=== PATIENT | female | born 1990 | race Caucasian/White ===

== ENCOUNTER 2020-09-09 10:07 | Outpatient (REF) | payer MEDICAID, SELFPAY ==
[2020-09-09 10:44] LABS: MANUAL DIFF FLAG NO
[2020-09-09 11:04] LABS: Basophils Absolute Auto 0.1 X10*3/uL (0.0-0.2); Basophils Percent Auto 0.9 % (0-2); Eosinophils Absolute Auto 0.1 X10*3/uL (0.0-0.4); Eosinophils Percent Auto 1.9 % (0-4); Hematocrit 34.6 % (37-47); Hemoglobin 10.7 g/dl (12.0-16.0); Imm Gran Abs Auto 0.01 X10*3/uL (0.00-0.03); Imm Gran Pct Auto 0.2 % (0.0-0.4); Lymphocytes Absolute Auto 1.8 X10*3/uL (1.2-4.9); Mean Corpuscular HGB Conc 30.9 g/dl (31.0-35.0); Mean Corpuscular Hemoglobin 26.5 pg (27.0-33.0); Mean Corpuscular Volume 85.6 fL (80-98); Mean Platelet Volume 10.9 fL (9.4-12.3); Monocytes Absolute Auto 0.4 X10*3/uL (0.1-1.2); Monocytes Percent Auto 6.3 % (2-11); Neutrophils Absolute Auto 3.4 X10*3/uL (2.0-8.3); Neutrophils Percent Auto 59.7 % (45-73); Platelet Count 319 X10*3/uL (160-400); Red Blood Count 4.04 X10*6/uL (4.20-5.50); White Blood Count 5.7 X10*3/uL (4.8-10.8)
[2020-09-09 11:09] LABS: Alanine Aminotransferase 18 U/L (0-31); Albumin Level 3.9 g/dL (3.5-5.0); Alkaline Phosphatase 72 U/L (39-117); Anion Gap 10 (12-20); Aspartate Amino Transferase 23 U/L (5-31); Bilirubin Total 0.3 mg/dL (0.0-1.0); Blood Urea Nitrogen 12 mg/dL (9-16); Calcium 8.7 mg/dL (8.4-10.2); Carbon Dioxide 24 mmol/L (22-29); Chloride 109 mmol/L (96-108); Cholesterol 115 mg/dL; Estimated Glomerular Filt Rate > 60; Glucose Random 86 mg/dL (60-115); HDL Cholesterol 45 mg/dL; LDL Cholesterol Calculated 61 mg/dl; Potassium 4.1 mmol/l (3.3-5.1); Sodium 139 mmol/L (135-145); Total Protein 6.6 g/dL (6.5-8.0); Triglycerides 45 mg/dL
[2020-09-09 11:26] LABS: Ferritin 9 ng/mL (10-122); TSH reflex Free T4 0.46 mIU/mL (0.32-4.0)
== END 2020-09-09 10:08 | disposition home or self-care (01) ==
LOC: HO.LAB 10:07
PROVIDERS: PCP Internal Medicine; Visit Provider Internal Medicine
DX: N92.0 Excessive and frequent menstruation with regular cycle (principal); R11.2 Nausea with vomiting, unspecified; Z68.21 Body mass index [BMI] 21.0-21.9, adult
CPT/HCPCS: 36415; 80053; 80061; 82728; 84443; 85025

== ENCOUNTER 2020-09-13 15:41 | Outpatient (REF) | payer MEDICAID, SELFPAY ==
--- NOTE | 2020-09-13 | US_ITS ---
EXAMINATION: US PELVIS, COMPLETE CLINICAL INFORMATION: Menorrhagia; the last menstrual period was on 09/01/2020. COMPARISON: Pelvic ultrasound dated 04/30/2008. TECHNIQUE: Transabdominal and transvaginal imaging was performed. FINDINGS: The uterus is of normal size and heterogeneous in echotexture, measuring 9.6 x 3.7 x 4.9 cm. The uterus is anteverted. A regular homogeneous endometrium is identified measuring 0.3 cm. Both ovaries are of normal size and echogenicity. The right ovary measures 3.1 x 2.8 x 2.5 cm for a volume of 11.4 mL. There is a 1.2 cm simple right ovarian cyst. The left ovary measures 3.1 x 3.0 x 1.7 cm for a volume of 8.3 mL. There is further small physiologic follicles within the bilateral ovaries. There is no pelvic free fluid. No adnexal mass is seen. US/US pelvic complete IMPRESSION: A 1.2 cm simple right ovarian cyst is incidentally noted. The examination is otherwise unremarkable.
--- NOTE | 2020-09-13 | US_ITS ---
EXAMINATION: US PELVIS, COMPLETE CLINICAL INFORMATION: Menorrhagia; the last menstrual period was on 09/01/2020. COMPARISON: Pelvic ultrasound dated 04/30/2008. TECHNIQUE: Transabdominal and transvaginal imaging was performed. FINDINGS: The uterus is of normal size and heterogeneous in echotexture, measuring 9.6 x 3.7 x 4.9 cm. The uterus is anteverted. A regular homogeneous endometrium is identified measuring 0.3 cm. Both ovaries are of normal size and echogenicity. The right ovary measures 3.1 x 2.8 x 2.5 cm for a volume of 11.4 mL. There is a 1.2 cm simple right ovarian cyst. The left ovary measures 3.1 x 3.0 x 1.7 cm for a volume of 8.3 mL. There is further small physiologic follicles within the bilateral ovaries. There is no pelvic free fluid. No adnexal mass is seen. US/US transvaginal IMPRESSION: A 1.2 cm simple right ovarian cyst is incidentally noted. The examination is otherwise unremarkable.
== END 2020-09-13 15:42 | disposition home or self-care (01) ==
LOC: HO.US 15:41
PROVIDERS: PCP Internal Medicine; Visit Provider Internal Medicine
DX: N92.0 Excessive and frequent menstruation with regular cycle (principal)
CPT/HCPCS: 76830; 76856

== ENCOUNTER 2020-09-29 16:30 | Outpatient (REF) | payer MEDICAID, SELFPAY ==
[2020-09-29 17:10] LABS: MANUAL DIFF FLAG NO
[2020-09-29 17:16] LABS: Basophils Percent Auto 0.4 % (0-2); Eosinophils Absolute Auto 0.2 X10*3/uL (0.0-0.4); Eosinophils Percent Auto 1.6 % (0-4); Hematocrit 35.2 % (37-47); Hemoglobin 10.9 g/dl (12.0-16.0); Imm Gran Abs Auto 0.03 X10*3/uL (0.00-0.03); Imm Gran Pct Auto 0.3 % (0.0-0.4); Lymphocytes Percent Auto 33.2 % (20-40); Mean Corpuscular Hemoglobin 26.4 pg (27.0-33.0); Mean Corpuscular Volume 85.2 fL (80-98); Mean Platelet Volume 11.6 fL (9.4-12.3); Monocytes Absolute Auto 0.9 X10*3/uL (0.1-1.2); Monocytes Percent Auto 9.7 % (2-11); Neutrophils Percent Auto 54.8 % (45-73); Platelet Count 268 X10*3/uL (160-400); Red Blood Count 4.13 X10*6/uL (4.20-5.50); Red Cell Distribution Width 14.9 % (11.0-16.0); White Blood Count 9.1 X10*3/uL (4.8-10.8)
[2020-09-29 18:15] LABS: Ferritin 8 ng/mL (10-122)
== END 2020-09-29 16:31 | disposition home or self-care (01) ==
LOC: HO.LAB 16:30
PROVIDERS: PCP Internal Medicine; Visit Provider Internal Medicine
DX: Z00.01 Encounter for general adult medical examination with abnormal findings (principal); D50.8 Other iron deficiency anemias; N92.0 Excessive and frequent menstruation with regular cycle
CPT/HCPCS: 36415; 82728; 85025

== ENCOUNTER → 2021-02-14 12:27 | Outpatient (BNVA) | payer MEDICAID, SELFPAY | PROVIDERS: Visit Provider Advanced Practice Midwife ==

== ENCOUNTER → 2021-07-05 08:16 | Outpatient (BNVA) | payer MEDICAID, SELFPAY | PROVIDERS: PCP Internal Medicine; Visit Provider Advanced Practice Midwife | DX: N92.6 Irregular menstruation, unspecified (principal) | CPT/HCPCS: 76801; 99212 ==

== ENCOUNTER 2021-07-05 11:03 | Outpatient (REF) | payer MEDICAID, SELFPAY ==
--- NOTE | ~2021-07-05 | US_ITS ---
EXAMINATION: US OBSTETRICAL ULTRASOUND CLINICAL INFORMATION: Encounter for supervision of normal . COMPARISON: None. LMP: Not known. Gestational age by maternal dates is unknown. Estimated date of delivery by maternal dates is unknown. TECHNIQUE: Routine transabdominal imaging of pelvis is performed. FINDINGS: There is a single intrauterine gestational sac with visible yolk sac, embryo/fetus, and cardiac activity. There is no significant subchorionic hemorrhage or hematoma. HR: 165 beats per minute. CRL (crown-rump length): 3.36 cm (10 weeks and 2 days (+/- 4 days). CONCHITA (estimated date of delivery): 01/29/2022 (+/- 4 days). MATERNAL ADNEXA: The right maternal ovary measures 2.9 x 1.5 x 2.2 cm. No focal lesion seen. The left maternal ovary measures 3.5 x 1.9 x 2.4 cm. No focal lesion seen. There is no significant maternal adnexal mass. No maternal pelvic ascites. US/US OB <= 14 weeks fetus IMPRESSION: 1. Single intrauterine gestation with live fetus and ultrasound gestational age of 10 weeks 2 days (+/- 4 days). 2. Estimated date of delivery is 01/29/2022 (+/- 4 days). 3. No maternal adnexal mass or pelvic ascites.
== END 2021-07-05 11:04 | disposition home or self-care (01) ==
LOC: HO.US 11:03
PROVIDERS: PCP Internal Medicine; Visit Provider Advanced Practice Midwife
DX: Z34.91 Encounter for supervision of normal pregnancy, unspecified, first trimester (principal); Z3A.10 10 weeks gestation of pregnancy
CPT/HCPCS: 76801

== ENCOUNTER → 2021-07-20 10:08 | Outpatient (BNVA) | payer MEDICAID, SELFPAY | PROVIDERS: PCP Internal Medicine; Visit Provider Advanced Practice Midwife ==

== ENCOUNTER 2024-02-18 09:50 | Outpatient (AMB) | payer MEDICAID, SELFPAY ==
--- NOTE | 2024-02-18 09:51 | MHC.OFFVIS ---
Vital Signs 02/18/24 09:52 Height 5 ft 6 in Weight 140 lb BMI 22.6 BP 128/70 Intake Visit Reasons: Early /IUP per Dr. Rodriguez Mixer Driver Required: No Mixer Driver Services: Mixer Driver Present Information Interpreted: clinical only Art Glass Designer: Art Glass Designer Present Allergies No Known Allergies [No Known Allergies*] Allergy (Verified 02/18/24 09:55) Medication List - Last Reconciled 02/18/24 by Gissell Shook CNM PNV,calcium 43-[id number] acid 27 mg iron- 1 mg ( Vitamins Plus Low Iron) 1 tab PO DAILY Is last menstrual period known: Yes (10/11/23) HPI HPI Early /IUP per Dr. Rodriguez: Details: Patient added on to schedule per request of Dr. Rodriguez patient states that she was in denial about her until her belly popped out this week she says her planned a cruise a year ago for this week and she has been in denial that she was . She states she needs a letter to state how far along she is and apparently conversations have occurred and the patient is seen per request of Dr. Rodriguez to have a stat HCG and ultrasound ordered. Patient has 4 children this will be her 5th. She has 2 boys and 2 girls, her 1st 3 were born at [place], her last baby was born at [facility] 2021. He is with her today. Patient's abdomen is obviously she states that she had an LMP of October 11 but then she had a very light spotting type. For 4 days in October also on November 08. Because of that she did not think she was . Using 10/11/2023 she would be 18 weeks and 6 days, patient's fundal height is consistent with this there is strong heart at 140. Her request a Dr. Rodriguez I am ordering the stat hCG and ultrasound and the patient is to return to the [facility] office after the ultrasound to obtain the results day. She also requested vitamins. She states she has an appointment at [facility] for care next week but has already changed it to the following week because she is going to be on this cruise. [facility] Medical History Asthma Family History Maternal Grandmother Ovarian cancer Maternal Grandfather Prostate cancer Social History Alcohol intake: never Patient Tobacco Use Status: Never used Tobacco Sexual orientation: Straight/Heterosexual Gender identity: Female Female Reproductive History Menstrual Age of Menarche: 13 Duration of menses: 3-5 days control method: none Total pregnancies: 5 Full term: 4 Date of last pap smear: 07/18/23 (negative) History of abnormal pap smear: Yes (abn. pap 2013, ) Physical Exam Vital Signs: Last Vital Signs BP 128/70 02/18/24 09:52 BMI result Body Mass Index 22.6 Const Other: Patient with obvious 2nd trimester fundal height uterus consistent with 16 18 weeks gestation strong heart of 140. Results AMB Test Urine AMB Test Urine Positive Last Edit by Vianney Pereira CMA on 02/18/24 10:05 Results Reviewed Results Reviewed: Laboratory Last Values [facility] Clinic Positive 02/18/24 10:04 Assessment & Plan Assessment & Plan (1) with uncertain dates in second trimester: Code(s): Z34.92 - Encounter for supervision of normal , unspecified, second trimester Category: Medical Plan Patient added on to schedule per request of Dr. Rodriguez patient states that she was in denial about her until her belly popped out this week she says her planned a cruise a year ago for this week and she has been in denial that she was . She states she needs a letter to state how far along she is and apparently conversations have occurred and the patient is seen per request of Dr. Rodriguez to have a stat HCG and ultrasound ordered. Patient has 4 children this will be her 5th. She has 2 boys and 2 girls, her 1st 3 were born at [place], her last baby was born at [facility] 2021. He is with her today. Patient's abdomen is obviously she states that she had an LMP of October 11 but then she had a very light spotting type. For 4 days in October also on November 08. Because of that she did not think she was . Using 10/11/2023 she would be 18 weeks and 6 days, patient's fundal height is consistent with this there is strong heart at [address]. [address] Rodriguez I am ordering the stat hCG and ultrasound and the patient is to return to the [facility] office after the ultrasound to obtain the results day. She also requested vitamins. She states she has an appointment at [facility] for care next week but has already changed it to the following week because she is going to be on this cruise. Orders: Orders AMB HCG Urine Test Today Z32.01 - Encounter for test, result positive US OB /maternal detail Today Z34.92 - Encounter for supervision of normal , unspecified, second trimester HCG Quantitative Today Z34.92 - Encounter for supervision of normal , unspecified, second trimester Medications: Refilled PNV,calcium 38-[id number]-[id number] acid 27 mg iron- 1 mg ( Vitamins Plus Low Iron) 1 tab PO DAILY 30 tabs 11RF Coding Level of Care Code Est Pt Level 3 (82570) Diagnoses with uncertain dates in second trimester Z34.92
[2024-02-18 09:52] VITALS: BP 128/70; BMI 22.6
== END 2024-02-18 10:44 | disposition home or self-care (01) ==
LOC: HO.HWSM 09:50
PROVIDERS: PCP Internal Medicine; Visit Provider Advanced Practice Midwife
DX: Z32.01 Encounter for pregnancy test, result positive (principal); Z34.92 Encounter for supervision of normal pregnancy, unspecified, second trimester
CPT/HCPCS: 99213

== ENCOUNTER → 2024-02-18 09:50 | Outpatient (BNVA) | payer MEDICAID, SELFPAY | PROVIDERS: PCP Internal Medicine; Visit Provider Advanced Practice Midwife ==

== ENCOUNTER 2024-02-18 11:18 | Outpatient (REF) | payer MEDICAID, SELFPAY ==
--- NOTE | ~2024-02-18 | US_ITS ---
EXAMINATION: US , LIMITED CLINICAL INFORMATION: Confirm dates, exclude ectopic. COMPARISON: ultrasound 07/05/2020. TECHNIQUE: Limited transabdominal ultrasound was performed to confirm CONCHITA and rule out an ectopic . FINDINGS: A single fetus is present in breech presentation: 4 chamber heart was seen with a normal heart rate of 137 bpm. measurements were as follows: Biparietal diameter 5.6 cm (23 weeks 1 day) Head circumference 21.3 cm (23 weeks 2 days) Abdominal circumference: 19.27 cm (24 weeks 0 days Femur length: 3.7 cm (21 weeks 4 days) Estimated weight is 1 pound 3.5 ounces. Based on today's measurements gestational age best estimated at to be 23 weeks 0 days. Amniotic fluid volume is normal. Placenta located anteriorly and is grade 2. US/US OB limited IMPRESSION: A single fetus in breech presentation with gestational age best estimated at 23 weeks 0 days with an CONCHITA of 06/16/2024.
[2024-02-18 12:47] LABS: HCG Quantitative 7873 mIU/mL
== END 2024-02-18 11:19 | disposition home or self-care (01) ==
LOC: HO.US 11:18
PROVIDERS: PCP Internal Medicine; Visit Provider Advanced Practice Midwife
DX: Z34.92 Encounter for supervision of normal pregnancy, unspecified, second trimester (principal); Z3A.23 23 weeks gestation of pregnancy
CPT/HCPCS: 36415; 76815; 81025; 84702; 99212